=== PATIENT | male | born 1985 | race Caucasian/White ===

== ENCOUNTER 2017-02-27 21:35 | Inpatient (IN) | payer OTHER ==
[~2017-02-27] VITALS: Ht 172.7 cm; Wt 71.5 kg
[2017-02-27] MEDS ORDERED: BND25 PO (22:03)
[2017-02-27] MEDS ORDERED: SODIUM CHLORIDE 0.9% 1000ML 1,000 ML IV STA (22:29)
--- NOTE | 2017-02-27 22:40 | EMERGENCY ROOM VISIT NOTE ---
History First contact with patient: 22:07 Chief Complaint: RAPID HEART RATE Stated Complaint: FAST HEART RATE Nursing Triage Summary: rapid heart rate. pt states he took prewokout before hockey tonight and afterwards developed palpitations and increased heart rate. complains of tingling in bilateral arms and abdomen. History of Present Illness The patient is a 31 year old male who presents to the Emergency Room with complaints of heart racing and feeling lightheaded that started approximately an hour ago. Patient states that he was playing in a recreational hockey game, which he does often, had his usual pre-workout drink and ate a full meal just before the game. He states he felt fine during the game, but after he stopped playing noticed that he felt his heart was racing and he was not feeling well. He also felt a sensation of not being able to catch his breath, and lightheaded like he might pass out, with tingling all over, most significant in both of his arms. Patient does admit that he had more caffeine than usual today, he states that he had a headache this morning, so he drank more coffee and soda than usual. He states his headache has fully resolved. He denies any symptoms of vision changes, neck pain or stiffness, chest pain, back pain, abdominal pain, nausea or vomiting blood in stool, urinary symptoms, rash. He denies any recent long travel or injury, leg pain or swelling, history of DVT. He denies any significant family history of cardiac disease, especially no history of sudden cardiac . Review of Systems A complete 10 point review of systems was reviewed with the patient with pertinent positives and negatives as per history of present illness. All else were negative. Past Medical/Surgical History Medical Problems: (1) Hypokalemia (2) Tachycardia Family History No family history of sudden cardiac Social History Smoking Status: Never Smoker Alcohol Use: occasionally Drug Use: none Marital Status: Housing Status: lives with family Current/Historical Medications Scheduled Diphenhydramine Hcl (Benadryl), 50 MG PO DAILY Allergies NKA Physical Exam Vital Signs Date Time Temp Pulse Resp B/P (MAP) Pulse Ox O2 Delivery O2 Flow Rate FiO2 02/28/17 01:30 109 02/28/17 01:26 37.4 112 18 152/91 98 Room Air 02/27/17 23:25 120 18 143/93 98 Room Air 02/27/17 22:50 98 Room Air 02/27/17 21:58 36.6 130 18 148/104 100 Room Air 02/27/17 21:49 130 02/27/17 21:37 36.6 133 18 149/93 100 Room Air Physical Exam CONSTITUTIONAL: No acute distress, non-diaphoretic, but with shaking rigors. Dehydrated. Alert and oriented X 4. Anxious. HEENT: Normocephalic, atraumatic. Pupils equal, round and reactive to light, EOMI. TMs normal. Pharynx normal. Dry mucous membranes. NECK: Supple, full active range of motion without discomfort. RESPIRATORY: Clear to auscultation bilaterally with no wheezing, crackles, rhonchi or stridor. Equal expansion bilaterally. CARDIOVASCULAR: Tachycardia. Regular rhythm with no murmurs, rubs or gallops. Normal peripheral perfusion. No edema. GASTROINTESTINAL: Soft, nontender, nondistended. Bowel sounds present in all quadrants. MUSCULOSKELETAL: Full range of motion of all joints without discomfort. No leg tenderness or swelling. INTEGUMENTARY: No rash or other significant dermatologic conditions noted. NEUROLOGIC: Cranial nerves II-XII grossly intact. No focal neurologic deficits noted. Normal strength, normal sensation all 4 extremities, normal speech, normal coordination. Medical Decision & Procedures Laboratory Results 02/27/17 21:55 Red Blood Count 5.04, Mean Corpuscular Volume 87.1, Mean Corpuscular Hemoglobin 31.7, Mean Corpuscular Hemoglobin Concent 36.4, Mean Platelet Volume 9.1, Neutrophils (%) (Auto) 59.2, Lymphocytes (%) (Auto) 31.1, Monocytes (%) (Auto) 6.5, Eosinophils (%) (Auto) 2.2, Basophils (%) (Auto) 0.5, Neutrophils # (Auto) 6.19, Lymphocytes # (Auto) 3.25, Monocytes # (Auto) 0.68, Eosinophils # (Auto) 0.23, Basophils # (Auto) 0.05 02/27/17 21:55 Test 02/27/17 21:55 02/28/17 01:04 02/28/17 01:46 White Blood Count 10.45 K/uL (4.8-10.8) Red Blood Count 5.04 M/uL (4.7-6.1) Hemoglobin 16.0 g/dL (14.0-18.0) Hematocrit 43.9 % (42-52) Mean Corpuscular Volume 87.1 fL (80-100) Mean Corpuscular Hemoglobin 31.7 pg (25-34) Mean Corpuscular Hemoglobin Concent 36.4 g/dl (32-36) Platelet Count 341 K/uL (130-400) Mean Platelet Volume 9.1 fL (7.4-10.4) Neutrophils (%) (Auto) 59.2 % Lymphocytes (%) (Auto) 31.1 % Monocytes (%) (Auto) 6.5 % Eosinophils (%) (Auto) 2.2 % Basophils (%) (Auto) 0.5 % Neutrophils # (Auto) 6.19 K/uL (1.4-6.5) Lymphocytes # (Auto) 3.25 K/uL (1.2-3.4) Monocytes # (Auto) 0.68 K/uL (0.11-0.59) Eosinophils # (Auto) 0.23 K/uL (0-0.5) Basophils # (Auto) 0.05 K/uL (0-0.2) RDW Standard Deviation 37.6 fL (36.4-46.3) RDW Coefficient of Variation 11.8 % (11.5-14.5) Immature Granulocyte % (Auto) 0.5 % Immature Granulocyte # (Auto) 0.05 K/uL (0.00-0.02) D-Dimer 370 ug/L FEU (0-500) Anion Gap 14.0 mmol/L (3-11) Est Creatinine Clear Calc Drug Dose 81.5 ml/min Estimated GFR () 86.7 Estimated GFR (Non- 74.8 BUN/Creatinine Ratio 8.0 (10-20) Calcium Level 9.3 mg/dl (8.5-10.1) Magnesium Level 2.0 mg/dl (1.8-2.4) Total Bilirubin 0.7 mg/dl (0.2-1) Direct Bilirubin 0.1 mg/dl (0-0.2) Aspartate Amino Transf (AST/SGOT) 20 U/L (15-37) Alanine Aminotransferase (ALT/SGPT) 37 U/L (12-78) Alkaline Phosphatase 91 U/L (45-117) Total Protein 8.4 gm/dl (6.4-8.2) Albumin 4.2 gm/dl (3.4-5.0) Thyroid Stimulating Hormone (TSH) 1.720 uIu/ml (0.300-4.500) Urine Color YELLOW Urine Appearance CLEAR (CLEAR) Urine pH 7.0 (4.5-7.5) Urine Specific [place] 1.010 (1.000-1.030) Urine Protein NEG (NEG) Urine Glucose (UA) NEG (NEG) Urine Ketones NEG (NEG) Urine Occult Blood NEG (NEG) Urine Nitrite NEG (NEG) Urine Bilirubin NEG (NEG) Urine Urobilinogen NEG (NEG) Urine Leukocyte Esterase NEG (NEG) Urine Opiates Screen NEG (NEG) Urine Methadone, Qualitative NEG (NEG) Urine Barbiturates NEG (NEG) Urine Phencyclidine (PCP) Level NEG (NEG) Ur Amphetamine/Methamphetamine NEG (NEG) MDMA (Ecstasy) Screen NEG (NEG) Urine Benzodiazepines Screen NEG (NEG) Urine Cocaine Metabolite NEG (NEG) Urine Marijuana (THC) NEG (NEG) Medications Administered Medications (Trade) Dose Ordered Sig/Simeon Route Start Time Stop Time Status Last Admin Dose Admin Sodium Chloride 1,000 ml @ 999 mls/hr Q1H1M STAT IV 02/27/17 22:29 02/27/17 23:29 DC 02/27/17 22:51 999 MLS/HR Potassium Chloride (Klor-Con M10) 60 meq NOW STAT PO 02/27/17 23:30 02/27/17 23:31 DC 02/27/17 23:35 60 MEQ Magnesium Sulfate (Magnesium Sulfate) 2 gm NOW STAT IV 02/27/17 23:30 02/27/17 23:31 DC 02/27/17 23:35 2 GM Lorazepam (Ativan Inj) 1 mg NOW STAT IV 02/27/17 23:30 02/27/17 23:31 DC 02/27/17 23:35 1 MG Potassium Chloride (Klor-Con M10) 40 meq NOW STAT PO 02/28/17 01:45 02/28/17 01:49 DC 02/28/17 01:54 40 MEQ Medical Decision CC: Patient presenting with complaint of rapid heart rate, lightheadedness, shortness of breath Interpretation of Labs: No leukocytosis, no anemia, marketed hypokalemia and hyperglycemia, normal renal function, normal liver enzymes and lipase, UA negative. Urine drug screen pending. Lactic acid significantly elevated at > 4. D-dimer is negative. Differential Diagnosis: Includes, but not limited to dehydration, electrolyte abnormality, dysrhythmia, caffeine overdose, other ingestion toxicity, pneumonia , PE, sepsis, among others. Medication Reconciliation: I attest that I have personally reviewed the patient' s current medication list. Vital signs review: I reviewed the patient's vital signs and interpret them as follows: T: Afebrile; BP: Hypertensive; HR: Tachycardic; RR: WNL; Pulse Ox: WNL on RA. Summary: Patient was evaluated at bedside, history of physical exam performed. Patient is alert and in no acute distress, but does appear somewhat anxious and having rigors. He denies any pain and states that his shortness of breath and lightheadedness have resolved. He is notably tachycardic on initial presentation, but is afebrile and vitals are otherwise stable. EKG reviewed at bedside, shows sinus tachycardia and otherwise unremarkable, no comparison EKGs available. Orders were placed at bedside for labs, lactic acid, UA, urine drug screen, IV fluids for hydration, chest x-ray to evaluate for pneumonia. Patient discussed with Dr. Montiel, who agrees with my assessment and plan. Chest x-ray reviewed, clear with no focal consolidations or effusions noted, no cardiomegaly by my read. Labs reviewed as above, notable for significant hypokalemia with hyperglycemia, and lactic acidosis. Patient reassessed multiple times, he remains afebrile and without leukocytosis and no obvious source of infection, therefore blood cultures and antibiotics were held at this time. Given patient's report of workout supplement use, there is some concern for ingestion of clenbuterol, which has beta-adrenergic properties, which would account for constellation of findings including persistent tachycardia refractory to IV fluid bolus x2, hypokalemia and hyperglycemia. I discussed with the clinical lab regarding testing for clenbuterol, they are researching this and will advise if testing is possible. Patient was treated with IV Ativan for the rigors and tachycardia, and given 2g IV Magnesium, as well as 60mEq PO potassium replacement. Given the persistent tachycardia with elevated lactic acid level and concern for evolving electrolyte imbalance, decision was made to seek admission. I spoke on the phone with Dr. Ward, Hospitalist, who agrees to admit the patient. Patient and updated on plan for admission, they verbalized understanding and are agreeable. Patient stable at time of admission. Head Trauma GCS Score: 15 Medication Reconcilliation Current Medication List: was personally reviewed by me Blood Pressure Screening Patient's blood pressure: Elevated blood pressure Blood pressure disposition: Elevated BP felt to be situational Impression Primary Impression: Tachycardia Additional Impressions: Hypokalemia Elevated lactic acid level Departure Information Dispostion Admitted as an inpatient Condition FAIR Referrals No Doctor, Assigned (PCP) Patient Instructions My [facility] Problem Qualifiers
[2017-02-27 22:41] LABS: BASO % 0.5 %; BASO ABS # 0.05 K/uL (0-0.2); COMPLETE YES; EOS % 2.2 %; HEMATOCRIT 43.9 % (42-52); IG% 0.5 %; LYMPH % 31.1 %; LYMPH ABS # 3.25 K/uL (1.2-3.4); MEAN CELL VOLUME 87.1 fL (80-100); MEAN CORPUSCULAR HEMOGLOBIN 31.7 pg (25-34); MEAN CORPUSCULAR HGB CONC 36.4 g/dl (32-36); MEAN PLATELET VOLUME 9.1 fL (7.4-10.4); MONO % 6.5 %; NEUT % 59.2 %; PLATELET COUNT 341 K/uL (130-400); RED BLOOD COUNT 5.04 M/uL (4.7-6.1); WHITE BLOOD COUNT 10.45 K/uL (4.8-10.8)
[2017-02-27 23:14] LABS: ALKALINE PHOSPHATASE 91 U/L (45-117); ALT/SGPT 37 U/L (12-78); AST/SGOT 20 U/L (15-37); BLOOD UREA NITROGEN 10 mg/dl (7-18); CALCIUM 9.3 mg/dl (8.5-10.1); CARBON DIOXIDE 22 mmol/L (21-32); CHLORIDE 100 mmol/L (98-107); CREATININE 1.27 mg/dl (0.60-1.40); GLUCOSE 171 mg/dl (70-99); POTASSIUM 2.5 mmol/L (3.5-5.1); SODIUM 136 mmol/L (136-145)
[2017-02-27] MEDS ORDERED: MAGNESIUM SULFATE 1GM / D5W 1 GM BAG IV STA (23:30)
[2017-02-27] MEDS ORDERED: POTASSIUM CHLORIDE 10 MEQ TABCR PO STA (23:30)
[2017-02-27] MEDS ORDERED: LORAZEPAM 2 MG/ML 1 ML VIAL IV STA (23:30)
[2017-02-28] VITALS (7 sets, daily range): BP systolic 128–148; BP diastolic 75–90; PULSE 94–116; TEMP 37.1–37.5; O2SAT 99–100; Ht 172.7 cm; Wt 71.5 kg
[2017-02-28 01:12] LABS: URINE APPEARANCE CLEAR (CLEAR); URINE BILIRUBIN NEG (NEG); URINE COLOR YELLOW; URINE NITRITE NEG (NEG); UROBILINOGEN NEG (NEG)
[2017-02-28 01:22] LABS: MANUAL MICROSCOPIC REQUIRED? NO; REVIEW REQ? NO
[2017-02-28 01:44] LABS: BENZODIAZEPINE, URINE NEG (NEG); COCAINE,URINE NEG (NEG); PHENCYCLIDINE, URINE NEG (NEG)
[2017-02-28] MEDS ORDERED: POTASSIUM CHLORIDE 10 MEQ TABCR PO STA (01:45)
[2017-02-28] MEDS ORDERED: AMPICILLIN/SULBACTAM SOD INJ 3,000 MG in SODIUM CHLORIDE 0.9% 100ML 100 ML IV STA (02:12)
[2017-02-28] MEDS ORDERED: PROMETHAZINE HCL INJ 12.5 MG in SODIUM CHLORIDE 0.9% 50ML 50 ML IV PRN (02:15)
[2017-02-28] MEDS ORDERED: IBUPROFEN 200 MG TAB PO PRN (02:15)
[2017-02-28] MEDS ORDERED: LORAZEPAM 2 MG/ML 1 ML VIAL IV PRN (02:15)
[2017-02-28] MEDS ORDERED: NSS + 20MEQ KCL 1000ML 1,000 ML IV SCH ×2 (02:15→05:00)
[2017-02-28] MEDS ORDERED: ACETAMINOPHEN 325 MG TAB PO PRN (02:15)
[2017-02-28] MEDS ORDERED: TRAMADOL HCL 50 MG TAB PO PRN (02:15)
[2017-02-28] MEDS ORDERED: SODIUM CHLORIDE 0.65% NA SOLN 45 ML (OCEAN) PRN (02:15)
[2017-02-28] MEDS ORDERED: KETOROLAC TROMETHAMINE 30 MG/ML VIAL IV PRN (02:15)
[2017-02-28] MEDS ORDERED: NSS + 20MEQ KCL 1000ML 1,000 ML IV STA (02:19)
[2017-02-28] MEDS ORDERED: NSS + 20MEQ KCL 1000ML 1,000 ML IV ONE ×2 (02:45→05:30)
--- NOTE | 2017-02-28 03:46 | HISTORY & PHYSICAL EXAMINATION ---
DATE OF ADMISSION: 02/28/2017 PRIMARY CARE DOCTOR: Blessing Stock CHIEF COMPLAINT: Palpitations and lightheadedness. HISTORY OF PRESENT ILLNESS: History was obtained from patient and ER provider. Patient recently relocated to [place] from [place] for schooling. In the last few days the patient noted nasal congestion, initially clear, sinus headache, drainage later noted to be green. No fever, no chills. Patient was trying to fight off infection by drinking a lot of soda. Yesterday, prior to a hockey game with his buddies he drank his usual caffeinated energy/pre-workout drink ("[employer]"). While at play, the patient noted lightheadedness and palpitations. No chest pain. Somewhat unable to catch his breath. He felt like he was going to pass out. Symptoms unresolved despite rest. Patient was brought to the Emergency Room. MEDICAL HISTORY: As above. SURGERIES: He had hand surgery and hernia surgery. HOME MEDICATIONS: None. ALLERGIES: No known drug allergies. FAMILY HISTORY: Heart disease. PERSONAL AND SOCIAL HISTORY: Nonsmoker. No chronic intake of alcoholic beverages. 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 REVIEW OF SYSTEMS: As per HPI. All other ROS is negative. PHYSICAL EXAMINATION: VITAL SIGNS: Blood pressure was noted to be 149/90, pulse rate 130 later 110, RR 18, temp 37.4 and sats 98 on room air. GENERAL: Slightly anxious, in no respiratory distress. SKIN: Normal color, warm. HEENT: [place] palpebral conjunctiva. The pupils are equal. No ptosis. Dry buccal mucosa. NECK: Supple. No tenderness. CHEST: Clear to auscultation. No tenderness. CARDIOVASCULAR: Tachycardic. No murmurs. Palpable LE pulses. ABDOMEN: Soft, nontender. EXTREMITIES: No edema. Healed scar on the left hand,. No tenderness. NEUROLOGIC: Coherent. No gross focality. LABORATORIES: Hemoglobin was noted to be 16, hematocrit 40.9, white cell count 10 platelets 341. Sodium 136, potassium 2.5, chloride 100, CO2 22, BUN 10, creatinine 1.2, glucose 171 [id number] lactic acid was 4 as per ER provider. Chest x-ray as per my interpretation no infiltrate. EKG as per my interpretation; rate of 130, sinus tachycardia. No ischemia. ASSESSMENT: 1. Palpitations secondary to sinus tachycardia multifactorial : Hypokalemia, clinical dehydration caffeine (soda and energy drink) intake 2. Sinusitis with secondary bacterial infection. 3. Hyperglycemia rule out diabetes mellitus PLAN: PCU, IV fluids, replace potassium 2D echo RE palpitations. Augmentin. Check hemoglobin A1c DVT prophylaxis SCDs. Full code. MTDD
[2017-02-28 06:38] LABS: BASO % 0.3 %; BASO ABS # 0.03 K/uL (0-0.2); COMPLETE YES; EOS % 0.2 %; HEMATOCRIT 40.6 % (42-52); IG% 0.2 %; LYMPH % 23.4 %; LYMPH ABS # 2.34 K/uL (1.2-3.4); MEAN CELL VOLUME 88.5 fL (80-100); MEAN CORPUSCULAR HEMOGLOBIN 31.8 pg (25-34); MEAN PLATELET VOLUME 8.6 fL (7.4-10.4); MONO % 5.7 %; NEUT % 70.2 %; PLATELET COUNT 293 K/uL (130-400); RED BLOOD COUNT 4.59 M/uL (4.7-6.1); WHITE BLOOD COUNT 9.98 K/uL (4.8-10.8)
--- NOTE | 2017-02-28 06:56 | DIAGNOSTIC IMAGING REPORT ---
CHEST 2 VIEWS ROUTINE CLINICAL HISTORY: palpitations cardiac arrhythmia COMPARISON STUDY: No previous studies for comparison. FINDINGS: The bones soft tissues and hemidiaphragms are normal. The cardiomediastinal silhouette is normal. The lungs are clear. The pulmonary vasculature is normal. IMPRESSION: Negative chest. The above report was generated using voice recognition software. It may contain grammatical, syntax or spelling errors. Electronically signed by: Basil Baptiste M.D. 02/28/2017 6:55 AM Dictated Date/Time: 02/28/2017 6:54 AM
[2017-02-28 07:21] LABS: BUN/CREATININE RATIO 7.9 (10-20); CALCIUM 8.8 mg/dl (8.5-10.1); CREATININE 0.91 mg/dl (0.60-1.40); POTASSIUM 4.4 mmol/L (3.5-5.1)
[2017-02-28 07:47] LABS: ESTIMATED AVERAGE GLUCOSE 88 mg/dl; HA1C FLAG Normal (Normal)
--- NOTE | 2017-02-28 08:25 | ECHOCARDIOGRAM REPORT ---
*NOTICE TO RECEIVING DEMOCRAT AGENCY This information is strictly Confidential and protected under [place] law. [place] law prohibits you from making any further disclosure of this information unless further disclosure is expressly permitted by the written consent of the person to whom it pertains or is authorized by law. A general authorization for the release of medical or other information is not sufficient for this purpose. Hospital accepts no responsibility if the information is made available to any other person, INCLUDING THE PATIENT. Interpretation Summary * Name: CORDELIA DE LA CRUZ Study Date: 02/28/2017 06:26 AM BP: 148/90 mmHg * Patient Location: [facility] HR: 116 * : 1985 (M/d/yyyy) Gender: Male Height: 68 in * Age: 31 yrs Ethnicity: CA Weight: 160 lb * Ordering Physician: Shemar Ward * Performed By: Allyssa Haq RDCS * * Reason For Study: PALPITATIONS * BSA: 1.9 m2 * -- Conclusions -- * There is mild concentric left ventricular hypertrophy. * No regional wall motion abnormalities noted. * The left ventricle is hyperdynamic. * The LV Ejection Fraction = >70 %. * The right ventricle is normal in size and function. * The LV diastolic function is normal. * There is no significant valvular heart disease. Procedure Details * A complete two-dimensional transthoracic echocardiogram was performed (2D, M-mode, Doppler and color flow Doppler). Left Ventricle * The left ventricle is normal in size. * There is mild concentric left ventricular hypertrophy. * The left ventricle is hyperdynamic. * Ejection Fraction = >70 %. * The left ventricular wall motion is normal. * No regional wall motion abnormalities noted. Right Ventricle * The right ventricle is normal in size and function. * The right ventricular systolic function is normal as assessed by tricuspid annular plane systolic excursion (TAPSE) (normal >1.5 cm). Atria * The left atrial size is normal. * Right atrial size is normal. * There is no evidence of atrial septal defect, but resolution does not allow assessment for a patent foramen ovale. Mitral Valve * The mitral valve is normal. * There is no mitral valve stenosis. * Significant mitral regurgitation is absent. Tricuspid Valve * The tricuspid valve is normal. * There is no tricuspid stenosis. * Significant tricuspid regurgitation is absent. * Doppler findings do not suggest pulmonary hypertension. Aortic Valve * The aortic valve is trileaflet. * Aortic stenosis is absent. * There is no significant aortic regurgitation. Pulmonic Valve * The pulmonary valve is not well seen, but the Doppler examination is normal without significant regurgitation or stenosis. Great Vessels * The aortic root and proximal ascending aorta are normal sized. Pericardium/Pleural * There is no pericardial effusion. Great Vessels * Normal inferior vena cava diameter and respiratory variation suggests normal central venous pressure. * Normal inferior vena cava size and collapsability with sniff indicates a normal right atrial pressure of 3 mmHg Left Ventricular Diastolic Function * The LV diastolic function is normal. MMode 2D Measurements and Calculations IVSd 1.3 cm IVSs 1.7 cm LVIDd 4.0 cm LVIDs 2.7 cm LVPWd 1.2 cm LVPWs 1.8 cm IVS/LVPW 1.1 FS 34.0 % EDV(Teich) 71.5 ml ESV(Teich) 26.1 ml EF(Teich) 63.4 % EDV(cubed) 65.7 ml ESV(cubed) 18.9 ml EF(cubed) 71.2 % % IVS thick 31.3 % % LVPW thick 46.9 % LV mass(C)d 185.0 grams LV mass(C)dI 99.5 grams/m\S\2 LV mass(C)s 185.5 grams LV mass(C)sI 99.8 grams/m\S\2 SV(Teich) 45.3 ml SI(Teich) 24.4 ml/m\S\2 SV(cubed) 46.8 ml SI(cubed) 25.2 ml/m\S\2 ACS 1.6 cm LA dimension 3.1 cm asc Aorta Diam 2.5 cm LVOT diam 1.8 cm LVOT area 2.5 cm\S\2 LVAd ap4 31.9 cm\S\2 LVLd ap4 8.7 cm EDV(MOD-sp4) 96.4 ml EDV(sp4-el) 99.4 ml LVAs ap4 17.1 cm\S\2 LVLs ap4 6.7 cm ESV(MOD-sp4) 35.6 ml ESV(sp4-el) 36.7 ml EF(MOD-sp4) 63.0 % EF(sp4-el) 63.0 % LVAd ap2 27.3 cm\S\2 LVLd ap2 8.3 cm EDV(MOD-sp2) 76.0 ml EDV(sp2-el) 76.7 ml LVAs ap2 14.2 cm\S\2 LVLs ap2 6.5 cm ESV(MOD-sp2) 26.7 ml ESV(sp2-el) 26.4 ml EF(MOD-sp2) 64.8 % EF(sp2-el) 65.6 % LVLd %diff -5.33 % EDV(MOD-bp) 86.4 ml LVLs %diff -3.46 % ESV(MOD-bp) 31.0 ml EF(MOD-bp) 64.2 % SV(MOD-sp4) 60.8 ml SI(MOD-sp4) 32.7 ml/m\S\2 SV(MOD-sp2) 49.2 ml SI(MOD-sp2) 26.5 ml/m\S\2 SV(MOD-bp) 55.4 ml SI(MOD-bp) 29.8 ml/m\S\2 SV(sp4-el) 62.7 ml SI(sp4-el) 33.7 ml/m\S\2 SV(sp2-el) 50.3 ml SI(sp2-el) 27.0 ml/m\S\2 Doppler Measurements and Calculations MV E max reilly 100.8 cm/sec MV A max reilly 85.7 cm/sec MV E/A 1.2 MV dec time 0.16 sec Ao V2 max 167.4 cm/sec Ao max PG 11.2 mmHg Ao max PG (full) 2.4 mmHg RAND(V,A) 2.2 cm\S\2 RAND(V,D) 2.2 cm\S\2 LV V1 max PG 8.8 mmHg LV V1 max 148.3 cm/sec PA V2 max 109.5 cm/sec PA max PG 4.8 mmHg
[2017-02-28] MEDS ORDERED: NURSING VERBAL MED ORDER ONE (12:30)
--- NOTE | 2017-02-28 14:44 | Progress Note ---
Internal Med Progress Note Date of Service: Feb 28, 2017. Provider Documentation: SUBJECTIVE: Patient's heart rate improved while on telemetry and IV fluids. Patient denies chest pain or shortness of breath or GI symptoms OBJECTIVE: Exam: General- no acute distress Eyes- EOMI ENT- no oral exudates Neck- no JVD, midline trachea Lungs- CTABL Heart- sinus rhythm Abdomen- soft, nontender, + bowel sounds Extremities- no edema, no gross motor deficits Neuro- awake and alert ASSESSMENT & PLAN: 31 year old M with palpitations with sinus tachycardia monitored on telemetry with tachycardia resolving after IV fluids. No obvious abnormalities on echo Echocardiogram report: -- Conclusions -- There is mild concentric left ventricular hypertrophy. No regional wall motion abnormalities noted. The left ventricle is hyperdynamic. The LV Ejection Fraction = >70 %. The right ventricle is normal in size and function. The LV diastolic function is normal. There is no significant valvular heart disease. Also found to have Hypokalemia with serum potassium 2.5. Serum Potassium was repleted with potassium replacements in IV fluid Patient counseled not to take further over the counter vitamin supplements, avoid caffeinated beverages Patient has follow up appointment to establish primary care on at 11:05 AM [facility]:Family practice physician in [place], [place] to see Monika Rodriguez MD Address: [address] [place] [address] , rescheduling also can be done with [phone] Vital Signs: Date Time Temp Pulse Resp B/P (MAP) Pulse Ox O2 Delivery O2 Flow Rate FiO2 02/28/17 12:00 Room Air 02/28/17 10:06 100 Room Air 02/28/17 09:27 37.1 107 16 128/75 (92) 99 02/28/17 05:00 105 02/28/17 04:00 100 Room Air 02/28/17 02:19 37.5 116 18 148/90 100 Room Air 02/28/17 01:30 109 02/28/17 01:26 37.4 112 18 152/91 98 Room Air 02/27/17 23:25 120 18 143/93 98 Room Air 02/27/17 22:50 98 Room Air 02/27/17 21:58 36.6 130 18 148/104 100 Room Air 02/27/17 21:49 130 02/27/17 21:37 36.6 133 18 149/93 100 Room Air Lab Results: Results Past 24 Hours Test 02/27/17 21:55 02/27/17 22:50 02/27/17 23:07 02/28/17 01:04 Range/Units White Blood Count 10.45 4.8-10.8 K/uL Red Blood Count 5.04 4.7-6.1 M/uL Hemoglobin 16.0 14.0-18.0 g/dL Hematocrit 43.9 42-52 % Mean Corpuscular Volume 87.1 80-100 fL Mean Corpuscular Hemoglobin 31.7 25-34 pg Mean Corpuscular Hemoglobin Concent 36.4 32-36 g/dl Platelet Count 341 130-400 K/uL Mean Platelet Volume 9.1 7.4-10.4 fL Neutrophils (%) (Auto) 59.2 % Lymphocytes (%) (Auto) 31.1 % Monocytes (%) (Auto) 6.5 % Eosinophils (%) (Auto) 2.2 % Basophils (%) (Auto) 0.5 % Neutrophils # (Auto) 6.19 1.4-6.5 K/uL Lymphocytes # (Auto) 3.25 1.2-3.4 K/uL Monocytes # (Auto) 0.68 0.11-0.59 K/uL Eosinophils # (Auto) 0.23 0-0.5 K/uL Basophils # (Auto) 0.05 0-0.2 K/uL RDW Standard Deviation 37.6 36.4-46.3 fL RDW Coefficient of Variation 11.8 11.5-14.5 % Immature Granulocyte % (Auto) 0.5 % Immature Granulocyte # (Auto) 0.05 0.00-0.02 K/uL D-Dimer 370 0-500 ug/L FEU Sodium Level 136 136-145 mmol/L Potassium Level 2.5 3.5-5.1 mmol/L Chloride Level 100 98-107 mmol/L Carbon Dioxide Level 22 21-32 mmol/L Anion Gap 14.0 3-11 mmol/L Blood Urea Nitrogen 10 7-18 mg/dl Creatinine 1.27 0.60-1.40 mg/dl Est Creatinine Clear Calc Drug Dose 81.5 ml/min Estimated GFR () 86.7 Estimated GFR (Non- 74.8 BUN/Creatinine Ratio 8.0 10-20 Random Glucose 171 70-99 mg/dl Calcium Level 9.3 8.5-10.1 mg/dl Magnesium Level 2.0 1.8-2.4 mg/dl Total Bilirubin 0.7 0.2-1 mg/dl Direct Bilirubin 0.1 0-0.2 mg/dl Aspartate Amino Transf (AST/SGOT) 20 15-37 U/L Alanine Aminotransferase (ALT/SGPT) 37 12-78 U/L Alkaline Phosphatase 91 45-117 U/L Total Creatine Kinase 144 39-308 U/L Troponin I < 0.015 0-0.045 ng/ml Total Protein 8.4 6.4-8.2 gm/dl Albumin 4.2 3.4-5.0 gm/dl Thyroid Stimulating Hormone (TSH) 1.720 0.300-4.500 uIu/ml Bedside Lactic Acid Venous 4.42 0.90-1.70 mmol/L Urine Color YELLOW Urine Appearance CLEAR CLEAR Urine pH 7.0 4.5-7.5 Urine Specific [place] 1.010 1.000-1.030 Urine Protein NEG NEG Urine Glucose (UA) NEG NEG Urine Ketones NEG NEG Urine Occult Blood NEG NEG Urine Nitrite NEG NEG Urine Bilirubin NEG NEG Urine Urobilinogen NEG NEG Urine Leukocyte Esterase NEG NEG Urine Opiates Screen NEG NEG Urine Methadone, Qualitative NEG NEG Urine Barbiturates NEG NEG Urine Phencyclidine (PCP) Level NEG NEG Ur Amphetamine/Methamphetamine NEG NEG MDMA (Ecstasy) Screen NEG NEG Urine Benzodiazepines Screen NEG NEG Urine Cocaine Metabolite NEG NEG Urine Marijuana (THC) NEG NEG Test 02/28/17 01:39 02/28/17 02:07 02/28/17 06:27 Range/Units Estimated Average Glucose 88 mg/dl Hemoglobin A1c 4.7 4.5-5.6 % Lactic Acid Level 1.8 0.4-2.0 mmol/L Ethyl Alcohol mg/dL < 3.0 0-3 mg/dl White Blood Count 9.98 4.8-10.8 K/uL Red Blood Count 4.59 4.7-6.1 M/uL Hemoglobin 14.6 14.0-18.0 g/dL Hematocrit 40.6 42-52 % Mean Corpuscular Volume 88.5 80-100 fL Mean Corpuscular Hemoglobin 31.8 25-34 pg Mean Corpuscular Hemoglobin Concent 36.0 32-36 g/dl Platelet Count 293 130-400 K/uL Mean Platelet Volume 8.6 7.4-10.4 fL Neutrophils (%) (Auto) 70.2 % Lymphocytes (%) (Auto) 23.4 % Monocytes (%) (Auto) 5.7 % Eosinophils (%) (Auto) 0.2 % Basophils (%) (Auto) 0.3 % Neutrophils # (Auto) 7.00 1.4-6.5 K/uL Lymphocytes # (Auto) 2.34 1.2-3.4 K/uL Monocytes # (Auto) 0.57 0.11-0.59 K/uL Eosinophils # (Auto) 0.02 0-0.5 K/uL Basophils # (Auto) 0.03 0-0.2 K/uL RDW Standard Deviation 38.3 36.4-46.3 fL RDW Coefficient of Variation 12.0 11.5-14.5 % Immature Granulocyte % (Auto) 0.2 % Immature Granulocyte # (Auto) 0.02 0.00-0.02 K/uL Sodium Level 143 136-145 mmol/L Potassium Level 4.4 3.5-5.1 mmol/L Chloride Level 111 98-107 mmol/L Carbon Dioxide Level 25 21-32 mmol/L Anion Gap 7.0 3-11 mmol/L Blood Urea Nitrogen 7 7-18 mg/dl Creatinine 0.91 0.60-1.40 mg/dl Est Creatinine Clear Calc Drug Dose 113.8 ml/min Estimated GFR () 129.7 Estimated GFR (Non- 111.9 BUN/Creatinine Ratio 7.9 10-20 Random Glucose 102 70-99 mg/dl Calcium Level 8.8 8.5-10.1 mg/dl Microbiology Results 02/28/17 Blood Culture, Received Pending 02/28/17 Blood Culture, Received Pending
--- NOTE | 2017-02-28 14:47 | Discharge Instructions ---
Discharge Instructions Date of Service Feb 28, 2017. Admission Reason for Admission: Hypokalemia,Tachycardia Discharge Discharge Diagnosis / Problem: Palpitations, Tachycardia, Hypokalemia Discharge Goals Goal(s): Decrease discomfort, Improve function Activity Recommendations Activity Limitations: resume your previous activity . Instructions / Follow-Up Instructions / Follow-Up 31 year old M with palpitations with sinus tachycardia monitored on telemetry with tachycardia resolving after IV fluids. No obvious abnormalities on echo Echocardiogram report: -- Conclusions -- There is mild concentric left ventricular hypertrophy. No regional wall motion abnormalities noted. The left ventricle is hyperdynamic. The LV Ejection Fraction = >70 %. The right ventricle is normal in size and function. The LV diastolic function is normal. There is no significant valvular heart disease. Also found to have Hypokalemia with serum potassium 2.5. Serum Potassium was repleted with potassium replacements in IV fluid Patient counseled not to take further over the counter vitamin supplements, avoid caffeinated beverages Patient has follow up appointment to establish primary care on at 11:05 AM [facility]:Family practice physician in [place], [place] to see Monika Rodriguez MD Address: [address] [place] [address] , rescheduling also can be done with [phone] Vital Signs: Current Hospital Diet Patient's current hospital diet: Regular Diet Discharge Diet Recommended Diet: Regular Diet Procedures Procedures Performed: echocardiogram Pending Studies Studies pending at discharge: no Laboratory Results 02/28/17 06:27 Red Blood Count 4.59, Mean Corpuscular Volume 88.5, Mean Corpuscular Hemoglobin 31.8, Mean Corpuscular Hemoglobin Concent 36.0, Mean Platelet Volume 8.6, Neutrophils (%) (Auto) 70.2, Lymphocytes (%) (Auto) 23.4, Monocytes (%) (Auto) 5.7, Eosinophils (%) (Auto) 0.2, Basophils (%) (Auto) 0.3, Neutrophils # (Auto) 7.00, Lymphocytes # (Auto) 2.34, Monocytes # (Auto) 0.57, Eosinophils # (Auto) 0.02, Basophils # (Auto) 0.03 02/28/17 06:27 Test 02/27/17 21:55 02/27/17 23:07 02/28/17 01:04 02/28/17 01:39 D-Dimer 370 ug/L FEU (0-500) Magnesium Level 2.0 mg/dl (1.8-2.4) Total Bilirubin 0.7 mg/dl (0.2-1) Direct Bilirubin 0.1 mg/dl (0-0.2) Aspartate Amino Transf (AST/SGOT) 20 U/L (15-37) Alanine Aminotransferase (ALT/SGPT) 37 U/L (12-78) Alkaline Phosphatase 91 U/L (45-117) Total Creatine Kinase 144 U/L (39-308) Troponin I < 0.015 ng/ml (0-0.045) Total Protein 8.4 gm/dl (6.4-8.2) Albumin 4.2 gm/dl (3.4-5.0) Thyroid Stimulating Hormone (TSH) 1.720 uIu/ml (0.300-4.500) Bedside Lactic Acid Venous 4.42 mmol/L (0.90-1.70) Urine Color YELLOW Urine Appearance CLEAR (CLEAR) Urine pH 7.0 (4.5-7.5) Urine Specific [place] 1.010 (1.000-1.030) Urine Protein NEG (NEG) Urine Glucose (UA) NEG (NEG) Urine Ketones NEG (NEG) Urine Occult Blood NEG (NEG) Urine Nitrite NEG (NEG) Urine Bilirubin NEG (NEG) Urine Urobilinogen NEG (NEG) Urine Leukocyte Esterase NEG (NEG) Urine Opiates Screen NEG (NEG) Urine Methadone, Qualitative NEG (NEG) Urine Barbiturates NEG (NEG) Urine Phencyclidine (PCP) Level NEG (NEG) Ur Amphetamine/Methamphetamine NEG (NEG) MDMA (Ecstasy) Screen NEG (NEG) Urine Benzodiazepines Screen NEG (NEG) Urine Cocaine Metabolite NEG (NEG) Urine Marijuana (THC) NEG (NEG) Test 02/28/17 02:07 02/28/17 06:27 Estimated Average Glucose 88 mg/dl Hemoglobin A1c 4.7 % (4.5-5.6) Lactic Acid Level 1.8 mmol/L (0.4-2.0) Ethyl Alcohol mg/dL < 3.0 mg/dl (0-3) White Blood Count 9.98 K/uL (4.8-10.8) Red Blood Count 4.59 M/uL (4.7-6.1) Hemoglobin 14.6 g/dL (14.0-18.0) Hematocrit 40.6 % (42-52) Mean Corpuscular Volume 88.5 fL (80-100) Mean Corpuscular Hemoglobin 31.8 pg (25-34) Mean Corpuscular Hemoglobin Concent 36.0 g/dl (32-36) Platelet Count 293 K/uL (130-400) Mean Platelet Volume 8.6 fL (7.4-10.4) Neutrophils (%) (Auto) 70.2 % Lymphocytes (%) (Auto) 23.4 % Monocytes (%) (Auto) 5.7 % Eosinophils (%) (Auto) 0.2 % Basophils (%) (Auto) 0.3 % Neutrophils # (Auto) 7.00 K/uL (1.4-6.5) Lymphocytes # (Auto) 2.34 K/uL (1.2-3.4) Monocytes # (Auto) 0.57 K/uL (0.11-0.59) Eosinophils # (Auto) 0.02 K/uL (0-0.5) Basophils # (Auto) 0.03 K/uL (0-0.2) RDW Standard Deviation 38.3 fL (36.4-46.3) RDW Coefficient of Variation 12.0 % (11.5-14.5) Immature Granulocyte % (Auto) 0.2 % Immature Granulocyte # (Auto) 0.02 K/uL (0.00-0.02) Anion Gap 7.0 mmol/L (3-11) Est Creatinine Clear Calc Drug Dose 113.8 ml/min Estimated GFR () 129.7 Estimated GFR (Non- 111.9 BUN/Creatinine Ratio 7.9 (10-20) Calcium Level 8.8 mg/dl (8.5-10.1) Date/Time Source Procedure Growth Status 02/28/17 02:07 Blood Blood Culture Pending Received Hemoglobin A1c Test 02/28/17 02:07 Range/Units Estimated Average Glucose 88 mg/dl Hemoglobin A1c 4.7 4.5-5.6 % Medical Emergencies . Who to Call and When: Medical Emergencies: If at any time you feel your situation is an emergency, please call 911 immediately. . Non-Emergent Contact Non-Emergency issues call your: Primary Care Provider . . "Provider Documentation" section prepared by Olman Zepeda. . VTE Core Measure Inpt VTE Proph given/why not?: SCD's
--- NOTE | 2017-02-28 14:48 | Discharge Summary ---
Discharge Summary Date of Service Feb 28, 2017. Discharge Summary Admission Date: Feb 28, 2017 at 01:50 Discharge Date: Feb 28, 2017 Principal Diagnosis: tachycardia, palpitations, hypokalemia Medication Reconciliation Continued Medications: Diphenhydramine Hcl (Benadryl) 25 Mg Cap 50 MG PO DAILY, CAP Admission Information HPI (per Admitting provider): CHIEF COMPLAINT: Palpitations and lightheadedness. HISTORY OF PRESENT ILLNESS: History was obtained from patient and ER provider. Patient recently relocated to [place] from [place] for schooling. In the last few days the patient noted nasal congestion, initially clear, sinus headache, drainage later noted to be green. No fever, no chills. Patient was trying to fight off infection by drinking a lot of soda. Yesterday, prior to a hockey game with his buddies he drank his usual caffeinated energy/pre-workout drink ("V[employer] [place]"). While at play, the patient noted lightheadedness and palpitations. No chest pain. Somewhat unable to catch his breath. He felt like he was going to pass out. Symptoms unresolved despite rest. Patient was brought to the Emergency Room. MEDICAL HISTORY: As above. SURGERIES: He had hand surgery and hernia surgery. HOME MEDICATIONS: None. ALLERGIES: No known drug allergies. FAMILY HISTORY: Heart disease. PERSONAL AND SOCIAL HISTORY: Nonsmoker. No chronic intake of alcoholic beverages. He is a Ph.D. student in Materials Engineering. REVIEW OF SYSTEMS: As per HPI. All other ROS is negative. Physical Exam (per Admitting): PHYSICAL EXAMINATION: VITAL SIGNS: Blood pressure was noted to be 149/90, pulse rate 130 later 110, RR 18, temp 37.4 and sats 98 on room air. GENERAL: Slightly anxious, in no respiratory distress. SKIN: Normal color, warm. HEENT: [place] palpebral conjunctiva. The pupils are equal. No ptosis. Dry buccal mucosa. NECK: Supple. No tenderness. CHEST: Clear to auscultation. No tenderness. CARDIOVASCULAR: Tachycardic. No murmurs. Palpable LE pulses. ABDOMEN: Soft, nontender. EXTREMITIES: No edema. Healed scar on the left hand,. No tenderness. NEUROLOGIC: Coherent. No gross focality. Hospital Course 31 year old M with palpitations with sinus tachycardia monitored on telemetry with tachycardia resolving after IV fluids. No obvious abnormalities on echo Echocardiogram report: -- Conclusions -- There is mild concentric left ventricular hypertrophy. No regional wall motion abnormalities noted. The left ventricle is hyperdynamic. The LV Ejection Fraction = >70 %. The right ventricle is normal in size and function. The LV diastolic function is normal. There is no significant valvular heart disease. Also found to have Hypokalemia with serum potassium 2.5. Serum Potassium was repleted with potassium replacements in IV fluid Patient counseled not to take further over the counter vitamin supplements, avoid caffeinated beverages Patient has follow up appointment to establish primary care on at 11:05 AM [facility]:Family practice physician in [place], [place] to see Monika Rodriguez MD Address: [address] [place] [address] , rescheduling also can be done with [phone] Total time spent on discharge = This includes examination of the patient, discharge planning, medication reconciliation, and communication with other providers. Discharge Instructions see above
[2017-02-28] MEDS ORDERED: AMOXICILLIN/CLAVULANATE TAB 875 MG TAB PO SCH (21:00)
== END 2017-02-28 16:53 | disposition home or self-care (01) | DRG 641 ==
LOC: C.EDB 21:37 → C.2E 02-28 01:50 → ENRESERV 02-28 01:58
PROVIDERS: ADMIT Internal Medicine; ATTEND Hospitalist
DX: E87.6 Hypokalemia (principal); R00.2 Palpitations; R00.0 Tachycardia, unspecified; R74.0 Nonspecific elevation of levels of transaminase and lactic acid dehydrogenase [LDH]; E86.0 Dehydration; F15.90 Other stimulant use, unspecified, uncomplicated; J32.9 Chronic sinusitis, unspecified; B96.89 Other specified bacterial agents as the cause of diseases classified elsewhere; R73.9 Hyperglycemia, unspecified